=== PATIENT | male | born 1945 | race Caucasian/White ===

== ENCOUNTER 2016-12-16 14:10 | Emergency (ER) | payer SELFPAY ==
[~2016-12-16] VITALS: Ht 182.9 cm; Wt 80.0 kg
[~2016-12-16 14:10] MED LIST: CARB100T4 PO; DOCU-30 PO; GLUC1TAB35 PO; HYDR-3138 PO; LISI-167 PO; NITR100C PO; NYST15CR33 TP; ONDA4TAB7 PO; OXYC5TAB3 PO; POLY17PO5 PO
[2016-12-16 14:14] VITALS: BP 128/72
[2016-12-16 16:11] LABS: HEMOGLOBIN 14.3 g/dL (13.7-18.0)
[2016-12-16 16:21] LABS: BLOOD UREA NITROGEN 21 mg/dL (7-18)
== END 2016-12-16 21:02 | disposition home or self-care (01) ==
LOC: ED 17:09
DX: N30.01 Acute cystitis with hematuria (principal); R33.9 Retention of urine, unspecified; Q54.9 Hypospadias, unspecified
CPT/HCPCS: 36415; 51702; 80048; 81001; 82040; 85025; 87077; 87086; 87186; 99283

== ENCOUNTER 2018-05-05 17:57 | Observation (INO) | payer MEDICARE, OTHER ==
[~2018-05-05] VITALS: Ht 182.9 cm; Wt 75.3 kg
[~2018-05-05 17:57] MED LIST changes: +DOCU-131 PO; -DOCU-30 PO; -HYDR-3138 PO; +HYDR-3237 PO
[2018-05-05] MEDS ORDERED: ASPIRIN 81 MG TABLET CHEW ONE (18:39)
[2018-05-05] MEDS ORDERED: ASPIRIN 81 MG TABLET CHEW PO ONE (19:00)
[2018-05-05] MEDS ORDERED: SODIUM CHLORIDE FLUSH 10ML SYR IVF ONE (19:00)
[2018-05-05 19:20] LABS: BASOPHILS # (AUTO) 0.07 x10^3/uL (0-0.1); BASOPHILS % (AUTO) 1 % (0-1); EOSINOPHILS # (AUTO) 0.26 x10^3/uL (0-0.4); EOSINOPHILS % (AUTO) 3 % (1-7); LYMPHOCYTES % (AUTO) 14 % (22-44); MD NO; MEAN CORPUSCULAR HEMOGLOBIN 32.8 pg (27.5-34.5); MEAN CORPUSCULAR HGB CONC 34.8 g/dL (33.2-36.2); MEAN CORPUSCULAR VOLUME 94.1 fL (81-97); MEAN PLATELET VOLUME 8.4 fL (7.4-10.4); MONOCYTES # (AUTO) 0.75 x10^3/uL (0.2-0.8); MONOCYTES % (AUTO) 9 % (2-9); NEUTROPHILS # (AUTO) 5.96 x10^3/uL (1.8-6.8); NEUTROPHILS % (AUTO) 73 % (42-75); PLATELET COUNT 268 x10^3/uL (130-400); RED BLOOD COUNT 3.67 x10^6/uL (4.38-5.82); RED CELL DISTRIBUTION WIDTH 13.6 % (9.4-14.8)
[2018-05-05 19:25] LABS: INTERNATIONAL NORMALIZED RATIO 0.97 (0.93-1.1)
[2018-05-05 19:27] LABS: ALBUMIN 3.3 g/dL (3.4-5.0); ANION GAP 12 mmol/L (5-15); CALCIUM 8.3 mg/dL (8.5-10.1); CHLORIDE 106 mmol/L (98-107)
[2018-05-05 19:33] LABS: ALANINE AMINOTRANSFERASE 22 U/L (12-78); ALKALINE PHOSPHATASE 71 U/L (45-117); BILIRUBIN,TOTAL 0.2 mg/dL (0.2-1.0); CREATININE 1.68 mg/dL (0.7-1.3); TOTAL PROTEIN 6.6 g/dL (6.4-8.2); TROPONIN I < 0.015 ng/mL (0.000-0.045)
[2018-05-05] MEDS ORDERED: MAALOX/HYOSCYAMINE/LIDOCAINE 45 ML BTL ONE (20:29)
[2018-05-05] MEDS ORDERED: MAALOX/HYOSCYAMINE/LIDOCAINE 45 ML BTL PO ONE (20:30)
[2018-05-05] MEDS ORDERED: ONDANSETRON 2MG/ML, 2ML IVPush PRN (22:00)
[2018-05-05] MEDS ORDERED: ONDANSETRON ODT 4 MG PO PRN (22:00)
[2018-05-05] MEDS ORDERED: morphine SULFATE 10 MG/ML, 1ML IVPush PRN (22:00)
[2018-05-05] MEDS ORDERED: ACETAMINOPHEN 325 MG TABLET PO PRN (22:00)
[2018-05-05] MEDS ORDERED: PROMETHAZINE 25 MG/ML, 1ML IM PRN (22:00)
[2018-05-05] MEDS ORDERED: hydrALAzine 20 MG/ML, 1ML IVPush PRN (22:00)
[2018-05-05] MEDS ORDERED: LABETALOL 5MG/ML, 20ML IVPush PRN (22:00)
[2018-05-05] MEDS ORDERED: POLYETHYLENE GLYCOL 17 GM PACKET PO PRN (22:00)
[2018-05-05] MEDS ORDERED: DOCUSATE 100 MG CAPSULE PO PRN ×2 (22:00)
[2018-05-05] MEDS ORDERED: BISACODYL 10 MG SUPP PR PRN (22:00)
[2018-05-05] MEDS ORDERED: NITROGLYCERIN 0.4 MG BOTTLE (25 TABS) SL PRN (22:00)
[2018-05-05] MEDS ORDERED: ENALAPRILAT 1.25 MG/ML, 2ML IVPush PRN (22:00)
[2018-05-05] MEDS ORDERED: OXYcodone IR 5MG TABLET PO PRN (22:00)
[2018-05-05] MEDS ORDERED: TAMS-11 PO (22:02)
[2018-05-05] MEDS ORDERED: IBUP-1222 PO (22:06)
[2018-05-05 22:27] LABS: FREE T4 (FREE THYROXINE) 1.01 ng/dL (0.76-1.46); THYROID STIMULATING HORMONE 0.591 mIU/L (0.358-3.740)
[2018-05-05] MEDS: SODIUM CHLORIDE 0.9% 1,000 ML IV SCH (22:52)
[2018-05-05] MEDS: HEPARIN 5,000 UNITS/ML, 1ML SQ SCH (22:54)
[2018-05-05] MEDS: CARBAMAZEPINE 100 MG TAB.CHEW PO SCH (22:54)
[2018-05-05] MEDS: FAMOTIDINE 20 MG/2 ML IVPush SCH (22:55)
[2018-05-05 22:56] LABS: HEMOGLOBIN A1C 5.8 % (4.2-6.3)
[2018-05-05 23:06] VITALS: BP 124/64
[2018-05-06 01:09] LABS: MICROSCOPIC AUTO
[2018-05-06 01:14] LABS: CULTURE INDICATED? YES
[2018-05-06 01:27] LABS: TROPONIN I < 0.015 ng/mL (0.000-0.045)
[2018-05-06 03:35] VITALS: BP 106/57
[2018-05-06] MEDS: ASPIRIN 325 MG TABLET EC PO SCH (04:59)
[2018-05-06] MEDS: HEPARIN 5,000 UNITS/ML, 1ML SQ SCH ×3 (05:00→21:11)
[2018-05-06 07:28] LABS: ALBUMIN 2.8 g/dL (3.4-5.0); ANION GAP 7 mmol/L (5-15); CALCIUM 7.9 mg/dL (8.5-10.1); CHLORIDE 110 mmol/L (98-107)
[2018-05-06 07:31] LABS: ALANINE AMINOTRANSFERASE 18 U/L (12-78); ALKALINE PHOSPHATASE 60 U/L (45-117); BILIRUBIN,TOTAL 0.3 mg/dL (0.2-1.0); CHOLESTEROL, TOTAL 128 mg/dL (140-239); CREATININE 1.52 mg/dL (0.7-1.3); HDL CHOL % 34 % (26-37); HDL CHOLESTEROL (DIRECT) 43 mg/dL (40-60); LDL CHOLESTEROL,CALCULATED 78 mg/dL (54-169); LDL/HDL RATIO 1.8 (0.5-3.0); TOTAL PROTEIN 5.4 g/dL (6.4-8.2); TRIGLYCERIDES 34 mg/dL (50-200); TROPONIN I 0.016 ng/mL (0.000-0.045); VLDL CHOLESTEROL 7 mg/dL (0-25)
[2018-05-06 07:37] LABS: MEAN CORPUSCULAR HEMOGLOBIN 30.9 pg (27.5-34.5); MEAN CORPUSCULAR HGB CONC 34.2 g/dL (33.2-36.2); MEAN CORPUSCULAR VOLUME 90.5 fL (81-97); MEAN PLATELET VOLUME 8.3 fL (7.4-10.4); PLATELET COUNT 225 x10^3/uL (130-400); RED CELL DISTRIBUTION WIDTH 13.9 % (9.4-14.8)
[2018-05-06 07:43] LABS: BASOPHILS # (AUTO) 0.05 x10^3/uL (0-0.1); BASOPHILS % (AUTO) 1 % (0-1); EOSINOPHILS # (AUTO) 0.23 x10^3/uL (0-0.4); EOSINOPHILS % (AUTO) 4 % (1-7); LYMPHOCYTES # (AUTO) 1.13 x10^3/uL (1-3.4); LYMPHOCYTES % (AUTO) 19 % (22-44); MONOCYTES # (AUTO) 0.52 x10^3/uL (0.2-0.8); MONOCYTES % (AUTO) 9 % (2-9); NEUTROPHILS # (AUTO) 4.06 x10^3/uL (1.8-6.8); NEUTROPHILS % (AUTO) 68 % (42-75)
[2018-05-06 07:44] LABS: MD SCAN
[2018-05-06] MEDS ORDERED: REGADENOSON 0.4 MG/5 ML SYRINGE ONE (08:17)
[2018-05-06 08:39] VITALS: BP 127/64
[2018-05-06] MEDS ORDERED: AMLODIPINE 5 MG TABLET PO SCH (09:00)
[2018-05-06] MEDS ORDERED: LISINOPRIL 10 MG TABLET PO SCH (09:00)
[2018-05-06] MEDS: SODIUM CHLORIDE 0.9% 1,000 ML IV SCH (09:07)
[2018-05-06] MEDS: TAMSULOSIN 0.4 MG CAP.ER.24H PO SCH (09:07)
[2018-05-06] MEDS: FAMOTIDINE 20 MG/2 ML IVPush SCH (09:08)
[2018-05-06] MEDS: CARBAMAZEPINE 100 MG TAB.CHEW PO SCH ×2 (09:08→21:11)
[2018-05-06] MEDS ORDERED: SODIUM POLYSTYRENE SULFONATE ORAL SUSP PO ONE (11:30)
[2018-05-06 14:34] VITALS: BP 121/61
[2018-05-06 18:08] LABS: ANION GAP 4 mmol/L (5-15); CHLORIDE 111 mmol/L (98-107); CREATININE 1.49 mg/dL (0.7-1.3)
[2018-05-06 20:40] VITALS: BP 105/66
[2018-05-06] MEDS ORDERED: SODIUM CHLORIDE 0.9% 1,000 ML IV SCH (21:51)
[2018-05-07 01:03] VITALS: BP 112/52
[2018-05-07] MEDS: ASPIRIN 325 MG TABLET EC PO SCH ×2 (05:53→05:58)
[2018-05-07] MEDS: HEPARIN 5,000 UNITS/ML, 1ML SQ SCH ×2 (05:54→05:57)
[2018-05-07 06:03] LABS: ALBUMIN 2.5 g/dL (3.4-5.0); ANION GAP 6 mmol/L (5-15); CALCIUM 7.7 mg/dL (8.5-10.1); CHLORIDE 111 mmol/L (98-107); CREATININE 1.47 mg/dL (0.7-1.3)
[2018-05-07] MEDS ORDERED: FAMOTIDINE 20 MG TABLET PO SCH (07:30)
[2018-05-07 08:35] VITALS: BP 99/50
[2018-05-07] MEDS: CARBAMAZEPINE 100 MG TAB.CHEW PO SCH (08:39)
[2018-05-07] MEDS: TAMSULOSIN 0.4 MG CAP.ER.24H PO SCH (08:39)
[2018-05-07] MEDS ORDERED: AMLODIPINE 2.5 MG TABLET PO SCH (09:00)
[2018-05-07] MEDS ORDERED: CEFD300C37 PO (09:02)
== END 2018-05-07 12:48 | disposition home or self-care (01) ==
LOC: ED 20:42 → INTOOBSV 20:45 → EDIP 20:45 → 5SO 21:46
PROVIDERS: ADMIT Internal Medicine; ATTEND Internal Medicine
DX: R07.89 Other chest pain (principal); I10 Essential (primary) hypertension; N17.0 Acute kidney failure with tubular necrosis; F17.200 Nicotine dependence, unspecified, uncomplicated; G40.909 Epilepsy, unspecified, not intractable, without status epilepticus; K85.90 Acute pancreatitis without necrosis or infection, unspecified; K29.70 Gastritis, unspecified, without bleeding; E44.0 Moderate protein-calorie malnutrition; G89.29 Other chronic pain; M16.10 Unilateral primary osteoarthritis, unspecified hip; N39.0 Urinary tract infection, site not specified; Z79.1 Long term (current) use of non-steroidal anti-inflammatories (NSAID); Z82.0 Family history of epilepsy and other diseases of the nervous system; Z82.49 Family history of ischemic heart disease and other diseases of the circulatory system; Z87.440 Personal history of urinary (tract) infections; Z91.81 History of falling; Z96.1 Presence of intraocular lens; Z98.49 Cataract extraction status, unspecified eye; Z79.82 Long term (current) use of aspirin
CPT/HCPCS: 36415; 71045; 76770; 78452; 80048; 80053; 80061; 81001; 82040; 83036; 83690; 83735; 83880; 84439; 84443; 84484; 85025; 85610; 87077; 87086; 87186; 93005; 93017; 96361; 96372; 96374; 96376; 97162; 97166; 99285; A9502; C9898; G0378; J1644; J2785; J7030; S0028

== ENCOUNTER 2019-01-01 13:31 | Emergency (ER) | payer MEDICARE, OTHER ==
[~2019-01-01] VITALS: Ht 182.9 cm; Wt 78.0 kg
[~2019-01-01 13:31] MED LIST changes: +CEFD300C37 PO; +IBUP-1222 PO; +TAMS-11 PO
[2019-01-01] MEDS ORDERED: SODIUM CHLORIDE FLUSH 10ML SYR IVF ONE (14:00)
--- NOTE | 2019-01-01 14:21 | NUR ---
FIRST CONTACT WITH PT. PT LAYING FLAT IN RWAVERLY, DISCUSSING POC WITH MED STUDENT. NAD NOTED. PT W/ MED STUDENT FOR INITIAL ASSESSMENT. TECH AT BEDSIDE TO PLACE IV.
--- NOTE | 2019-01-01 14:38 | NUR ---
CT WAITING ON PENDING LAB RESULTS
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
[2019-01-01 14:41] LABS: BASOPHILS # (AUTO) 0.11 x10^3/uL (0-0.1); BASOPHILS % (AUTO) 1 % (0-1); EOSINOPHILS # (AUTO) 0.01 x10^3/uL (0-0.4); EOSINOPHILS % (AUTO) 0 % (1-7); LYMPHOCYTES # (AUTO) 0.28 x10^3/uL (1-3.4); LYMPHOCYTES % (AUTO) 2 % (22-44); MD NO; MEAN CORPUSCULAR HEMOGLOBIN 29.9 pg (27.5-34.5); MEAN CORPUSCULAR HGB CONC 32.4 g/dL (33.2-36.2); MEAN CORPUSCULAR VOLUME 92.1 fL (81-97); MEAN PLATELET VOLUME 8.3 fL (7.4-10.4); MONOCYTES # (AUTO) 0.87 x10^3/uL (0.2-0.8); MONOCYTES % (AUTO) 6 % (2-9); NEUTROPHILS # (AUTO) 13.31 x10^3/uL (1.8-6.8); NEUTROPHILS % (AUTO) 91 % (42-75); PLATELET COUNT 278 x10^3/uL (130-400); RED BLOOD COUNT 4.68 x10^6/uL (4.38-5.82)
[2019-01-01 14:48] LABS: ALANINE AMINOTRANSFERASE 28 U/L (12-78); ALBUMIN 3.4 g/dL (3.4-5.0); ANION GAP 8 mmol/L (5-15); CHLORIDE 107 mmol/L (98-107); CREATININE 2.15 mg/dL (0.7-1.3)
[2019-01-01 14:51] LABS: ALKALINE PHOSPHATASE 78 U/L (45-117); BILIRUBIN,TOTAL 0.4 mg/dL (0.2-1.0); TOTAL PROTEIN 6.6 g/dL (6.4-8.2)
[2019-01-01] MEDS ORDERED: ONDANSETRON 2MG/ML, 2ML ONE (16:03)
[2019-01-01] MEDS ORDERED: MORPHINE SULFATE 4 MG/ML, 1ML ONE (16:03)
--- NOTE | 2019-01-01 16:15 | NUR ---
STRAIGHT CATH PERFORMED. PT MEDICATED PER EMAR FOR PAIN/NAUSEA. LAB IN TO DRAW BC's
[2019-01-01] MEDS ORDERED: CEFTRIAXONE PMX 1GM/50ML 50 ML ONE (16:19)
--- NOTE | 2019-01-01 16:22 | NUR ---
ABX INITIATED. BC X2 DRAWN PRIOR TO ADMIN.
[2019-01-01] MEDS ORDERED: ONDANSETRON 2MG/ML, 2ML IVPush ONE (16:30)
[2019-01-01] MEDS ORDERED: MORPHINE SULFATE 4 MG/ML, 1ML IVPush PRN (16:30)
[2019-01-01] MEDS ORDERED: CEFTRIAXONE PMX 1GM/50ML 50 ML IVPB ONE (16:30)
[2019-01-01] MEDS ORDERED: SODIUM CHLORIDE FLUSH 10ML SYR IVF PRN (16:30)
[2019-01-01 16:51] LABS: MICROSCOPIC AUTO
[2019-01-01 16:57] LABS: CULTURE INDICATED? YES
--- NOTE | 2019-01-01 17:47 | NUR ---
NO S/S OF ABX RXN NOTED. D/T INSURANCE, PT TO BE TRANSPORTED TO [facility]. PT UPDATED AND DEMONSTRATES UNDERSTANDING. PT REPORTS IMPROVEMENT IN PAIN & NAUSEA AND DENIES NEED FOR FURTHER PAIN MEDICAITONS.
--- NOTE | 2019-01-01 19:26 | NUR ---
REPORT TO RICHIE BUCK AT [facility]. PT TO BE TRANSFERED FOR CONTINUED CARE
[2019-01-01 20:01] VITALS: BP 113/48
--- NOTE | 2019-01-01 20:02 | NUR ---
Break RN: Pt repositioned in bed for comfort, updated on [facility] eta (approx 2029) Pt requesting water/soda. Will confirm with pt ok to drink
--- NOTE | 2019-01-01 21:06 | NUR ---
SHALA ARRIVED TO TRANSPORT PT. REPORT TO [facility].
== END 2019-01-01 21:08 | disposition home or self-care (01) ==
LOC: ED 15:55
DX: N13.2 Hydronephrosis with renal and ureteral calculous obstruction (principal); I13.10 Hypertensive heart and chronic kidney disease without heart failure, with stage 1 through stage 4 chronic kidney disease, or unspecified chronic kidney disease; N18.3 Chronic kidney disease, stage 3 (moderate); M19.90 Unspecified osteoarthritis, unspecified site
CPT/HCPCS: 36415; 71045; 74176; 80053; 81001; 83605; 83690; 84145; 85025; 87040; 87077; 87086; 87186; 93005; 96365; 96375; 99284; C1726; J0696; J2405